=== PATIENT | male | born 1995 | race African-American/Black ===

== ENCOUNTER 2018-09-16 22:01 | Emergency (ER) | payer SELFPAY ==
[~2018-09-16] VITALS: Ht 185.4 cm; Wt 72.7 kg
[2018-09-16 22:10] VITALS: BP 121/78; TEMP 99.4
[2018-09-16] MEDS ORDERED: FLONASEALLERGY NS (23:17)
[2018-09-16 23:40] VITALS: PULSE 96
== END 2018-09-16 23:40 | disposition home or self-care (01) ==
LOC: COL.ER 22:01
DX: J30.9 Allergic rhinitis, unspecified (principal)

== ENCOUNTER 2018-09-18 14:05 | Emergency (ER) | payer SELFPAY ==
[~2018-09-18] VITALS: Ht 182.9 cm; Wt 72.7 kg
[~2018-09-18 14:05] MED LIST: FLONASEALLERGY NS
[2018-09-18 14:08] VITALS: BP 121/75; TEMP 97.9
[2018-09-18] MEDS ORDERED: CLARITIN-D 10 M1 T24 PO (14:14)
[2018-09-18 14:53] LABS: STREP SCREEN NEGATIVE
[2018-09-18 15:42] VITALS: PULSE 89
== END 2018-09-18 15:43 | disposition home or self-care (01) ==
LOC: COL.ER 14:05
PROVIDERS: Nurse Practitioner
DX: J06.9 Acute upper respiratory infection, unspecified (principal)

== ENCOUNTER 2018-11-13 03:24 | Emergency (ER) | payer SELFPAY ==
[~2018-11-13] VITALS: Ht 185.4 cm; Wt 70.5 kg
[~2018-11-13 03:24] MED LIST changes: +CLARITIN-D 10 M1 T24 PO
[2018-11-13 03:26] VITALS: BP 117/72; PULSE 72; TEMP 97.9
[2018-11-13] MEDS ORDERED: NORCO 325 MG-51 TAB PO (04:22)
[2018-11-13] MEDS ORDERED: PEN-VEE K500 MG PO (04:22)
== END 2018-11-13 04:35 | disposition home or self-care (01) ==
LOC: COL.ER 03:24
DX: K02.9 Dental caries, unspecified (principal)
CPT/HCPCS: J1885